=== PATIENT | male | born 1985 | race African-American/Black ===

== ENCOUNTER 2021-07-14 19:58 | Emergency (ER) | payer OTHER ==
[~2021-07-14] VITALS: Ht 175.3 cm; Wt 63.5 kg
--- NOTE | ~2021-07-14 | EMS ---
[facility] [address] [place] [address] EMS Patient Care Report Name: VANIA MEJIA Room #: DEP PATY Vincent#: [id number] Admission: 07/14/21 Attend Phys: Discharge: 07/14/21 Date of : 87 Report #: [id number] THIS REPORT FOR: //name// Report Transmitted: 07/19/2021 14:03 EMS Care Summary [place], [place]/[facility] Incident [id number] @ 07/14/2021 19:27 Incident Location [address] [place] [id number] Patient VANIA MEJIA Male, 35 Years 1985 Patient Address [address] [place] [address] Patient History Asthma,Hypertension (HTN),Human Immunodeficiency Virus Disease (HIV/AIDS),Dialysis, Patient Allergies No known allergies, Patient Medications Levofloxacin, Amlodipine, Hydralazine, Albuterol, Carvedilol, Chief Complaint SOA Disposition Transported No Lights/[place] Dispatch Reason Breathing Problem Transported To [facility] Narrative M41 DISPATCHED TO BREATHING PROBLEMS. M41 AOS AND FOUND A MALE PT WITH HIS BROTHER. PT STATES THAT HE FEELS SOA AND [facility] [address] [place] [address] EMS Patient Care Report Name: VANIA MEJIA Room #: DEP ER Carlton#: [id number] Admission: 07/14/21 Attend Phys: Discharge: 07/14/21 Date of : [birth year] Report #: [id number] THAT HE FEELS LIKE HE IS GOING TO . THE PT AT THIS TIME IS NOT BREATHING LABORED AND DOES NOT APPEAR IN ANY RESPIRATORY DISTRESS. THE PTS BROTHER STATES THAT HE WAS JUST AT [facility] FOR SIMILAR SYMPTOMS AND STATED THAT HE WAS ALSO GIVEN A MENTAL HEALTH EVALUATION. PT WAS DISCHARGED TODAY AFTER HIS DIALYSIS. THE PT STATES THAT HE HAS NO OTHER COMPLAINTS AT THIS TIME. PT WALKED TO THE COT AND MOVED INTO THE AMBULANCE. VITALS OBTAINED. PT REFUSED BGA. M[address]. [address] [facility] PT WAS NOT BEING VERY COOPERATIVE TRYING TO TAKE HIS SEATBELTS OFF EVEN AFTER I EXPLAINED TO HIM WHY THEY WERE IMPORTED AND HE WAS NOT ANSWERING QUESTIONS WHEN I ASKED HE JUST CONTINUED TO RAMBLE ABOUT THINGS THAT I DID NOT ASK HIM. REPORT GIVEN TO JN TALLEY. SIGNATURES OBTAINED. TRANSFER OF CARE TOOK PLACE. M41 IN SERVICE. 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 Initial Vitals @19:44P: 110,R: 18,BP: 156/108,Pain: 2/10,GCS: 15,SpO2: 96,Revised Trauma: 12, @19:38P: 108,R: 18,BP: 168/104,GCS: 15,SpO2: 98,Revised Trauma: 12, Assessments @19:46MENTAL:Event Oriented,Time Oriented,Person Oriented,Place Oriented,SKIN:HEENT:Head/Face: No Abnormalities,Neck/Airway: No Abnormalities,LUNG SOUNDS:General: No Abnormalities,ABDOMEN:General: No Abnormalities,PELVIS//GI:No Abnormalities,EXTREMITIES:Capillary Refill: Right Upper: < 2 Sec,Left Arm: No Abnormalities,Right Arm: No Abnormalities,Left Leg: No Abnormalities,Right Leg: No Abnormalities,PULSE:Radial: 2+ Normal,NEURO:No Abnormalities, Impression Shortness of breath Procedures @19:46ALS AssessmentResponse: UnchangedSucceeded Timeline 19:25,Call Received 19:25,Dispatch Notified 19:27,Dispatched [address] [address] EMS Patient Care Report Name: VANIA MEJIA Room #: DEP PATY Vincent#: [id number] Admission: 07/14/21 Attend Phys: Discharge: 07/14/21 Date of : [birth year] Report #: [id number] 19:28,En Route 19:32,On Scene 19:33,At Patient 19:38,BP: 168/104 M,PULSE: 108,RR: 18 R,SPO2: 98 Ox,ETCO2: ,BG: ,PAIN: ,GCS: 15, 19:41,Depart Scene 19:44,BP: 156/108 M,PULSE: 110,RR: 18 R,SPO2: 96 Ox,ETCO2: ,BG: ,PAIN: 2,GCS: 15, 19:46,ALS Assessment,Response: UnchangedSucceeded, 19:55,At Destination 20:09,Call Closed Disclaimer v1.1 Copyright 2020 [employer] This EMS Care Summary contains data elements from the applicable legal record (which may be displayed differently). It is designed to provide pertinent information for the following purposes: continuity of care, clinical quality, and state data reporting. The complete legal record is available to ED staff and administrators of the receiving hospital in [facility]'s Patient Tracker. All data is provided "as is."
--- NOTE | ~2021-07-14 | EMS ---
[facility] [address] [place] [address] EMS Patient Care Report Name: VANIA MEJIA Room #: DEP PATY Vincent#: [id number] Admission: 07/14/21 Attend Phys: Discharge: 07/14/21 Date of : 87 Report #: [id number] THIS REPORT FOR: //name// Report Transmitted: 07/16/2021 09:16 EMS Care Summary [place], [place]/[facility] Incident [id number] @ 07/14/2021 19:27 Incident Location [address] [place] [address] Patient VANIA MEJIA Male, 35 Years 1985 Patient Address [address] [place] [address] Patient History Asthma,Hypertension (HTN),Human Immunodeficiency Virus Disease (HIV/AIDS),Dialysis, Patient Allergies No known allergies, Patient Medications Carvedilol, Albuterol, Hydralazine, Amlodipine, Levofloxacin, Chief Complaint SOA Disposition Transported No Lights/[place] Dispatch Reason Breathing Problem Transported To [facility] Narrative M41 DISPATCHED TO BREATHING PROBLEMS. M41 AOS AND FOUND A MALE PT WITH HIS BROTHER. PT STATES THAT HE FEELS SOA AND [facility] [address] [place] [address] EMS Patient Care Report Name: VANIA MEJIA Room #: DEP ER Carlton#: [id number] Admission: 07/14/21 Attend Phys: Discharge: 07/14/21 Date of : 87 Report #: [id number] THAT HE FEELS LIKE HE IS GOING TO . THE PT AT THIS TIME IS NOT BREATHING LABORED AND DOES NOT APPEAR IN ANY RESPIRATORY DISTRESS. THE PTS BROTHER STATES THAT HE WAS JUST AT [facility] FOR SIMILAR SYMPTOMS AND STATED THAT HE WAS ALSO GIVEN A MENTAL HEALTH EVALUATION. PT WAS DISCHARGED TODAY AFTER HIS DIALYSIS. THE PT STATES THAT HE HAS NO OTHER COMPLAINTS AT THIS TIME. PT WALKED TO THE COT AND MOVED INTO THE AMBULANCE. VITALS OBTAINED. PT REFUSED BGA. M[address]. [address] [facility] PT WAS NOT BEING VERY COOPERATIVE TRYING TO TAKE HIS SEATBELTS OFF EVEN AFTER I EXPLAINED TO HIM WHY THEY WERE IMPORTED AND HE WAS NOT ANSWERING QUESTIONS WHEN I ASKED HE JUST CONTINUED TO RAMBLE ABOUT THINGS THAT I DID NOT ASK HIM. REPORT GIVEN TO JN TALLEY. SIGNATURES OBTAINED. TRANSFER OF CARE TOOK PLACE. M41 IN SERVICE. 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 Initial Vitals @19:44P: 110,R: 18,BP: 156/108,Pain: 2/10,GCS: 15,SpO2: 96,Revised Trauma: 12, @19:38P: 108,R: 18,BP: 168/104,GCS: 15,SpO2: 98,Revised Trauma: 12, Assessments @19:46MENTAL:Event Oriented,Time Oriented,Person Oriented,Place Oriented,SKIN:HEENT:Head/Face: No Abnormalities,Neck/Airway: No Abnormalities,LUNG SOUNDS:General: No Abnormalities,ABDOMEN:General: No Abnormalities,PELVIS//GI:No Abnormalities,EXTREMITIES:Capillary Refill: Right Upper: < 2 Sec,Left Arm: No Abnormalities,Right Arm: No Abnormalities,Left Leg: No Abnormalities,Right Leg: No Abnormalities,PULSE:Radial: 2+ Normal,NEURO:No Abnormalities, Impression Shortness of breath Procedures @19:46ALS AssessmentResponse: UnchangedSucceeded Timeline 19:25,Call Received 19:25,Dispatch Notified 19:27,Dispatched [address] [address] EMS Patient Care Report Name: VANIA MEJIA Room #: DEP PATY Vincent#: [id number] Admission: 07/14/21 Attend Phys: Discharge: 07/14/21 Date of : 87 Report #: [id number] 19:28,En Route 19:32,On Scene 19:33,At Patient 19:38,BP: 168/104 M,PULSE: 108,RR: 18 R,SPO2: 98 Ox,ETCO2: ,BG: ,PAIN: ,GCS: 15, 19:41,Depart Scene 19:44,BP: 156/108 M,PULSE: 110,RR: 18 R,SPO2: 96 Ox,ETCO2: ,BG: ,PAIN: 2,GCS: 15, 19:46,ALS Assessment,Response: UnchangedSucceeded, 19:55,At Destination 20:09,Call Closed Disclaimer v1.1 Copyright 2020 [employer] This EMS Care Summary contains data elements from the applicable legal record (which may be displayed differently). It is designed to provide pertinent information for the following purposes: continuity of care, clinical quality, and state data reporting. The complete legal record is available to ED staff and administrators of the receiving hospital in [facility]'s Patient Tracker. All data is provided "as is."
[2021-07-14 20:08] VITALS: BP 167/97
== END 2021-07-14 20:30 | disposition left against medical advice (07) ==
LOC: ER 19:58
DX: R06.00 Dyspnea, unspecified (principal); Z20.822 Contact with and (suspected) exposure to COVID-19; Z21 Asymptomatic human immunodeficiency virus [HIV] infection status; N18.6 End stage renal disease; J45.909 Unspecified asthma, uncomplicated; I10 Essential (primary) hypertension; Z99.2 Dependence on renal dialysis; Z91.048 Other nonmedicinal substance allergy status